=== PATIENT | female | born 1985 | race Caucasian/White ===

== ENCOUNTER 2020-02-06 20:11 | Emergency (ER) | payer SELFPAY ==
[~2020-02-06] VITALS: Ht 152.4 cm; Wt 73.3 kg
--- NOTE | 2020-02-06 22:09 | NUR ---
JUNIOR JAVA DEVELOPER: UA COLLECTED AND SENT FROM TRIAGE
[2020-02-06 22:16] LABS: BASOPHILS # (AUTO) 0.03 x10^3/uL (0-0.1); BASOPHILS % (AUTO) 1 % (0-1); EOSINOPHILS # (AUTO) 0.15 x10^3/uL (0-0.4); EOSINOPHILS % (AUTO) 2 % (1-7); LYMPHOCYTES # (AUTO) 1.88 x10^3/uL (1-3.4); LYMPHOCYTES % (AUTO) 27 % (22-44); MD NO; MEAN CORPUSCULAR HEMOGLOBIN 31.1 pg (27.0-34.8); MEAN CORPUSCULAR VOLUME 94.2 fL (80-100); MEAN PLATELET VOLUME 9.1 fL (7.4-10.4); MONOCYTES # (AUTO) 0.41 x10^3/uL (0.2-0.8); MONOCYTES % (AUTO) 6 % (2-9); NEUTROPHILS # (AUTO) 4.41 x10^3/uL (1.8-6.8); NEUTROPHILS % (AUTO) 64 % (42-75); PLATELET COUNT 333 x10^3/uL (130-400); RED BLOOD COUNT 4.88 x10^6/uL (3.82-5.3); RED CELL DISTRIBUTION WIDTH 13.6 % (9.6-15.2)
[2020-02-06 22:20] LABS: ANION GAP 7 mmol/L (5-15); CHLORIDE 116 mmol/L (98-107)
[2020-02-06 22:20] LABS: CULTURE INDICATED? YES; MICROSCOPIC INDICATED
--- NOTE | 2020-02-06 22:59 | NUR ---
PT. AMBULATORY TO ROOM FROM LOBBY AT THIS TIME.
--- NOTE | 2020-02-06 23:06 | NUR ---
PT. C/O RLQ ABD PAIN THAT RADIATES TO RIGHT FLANK X 1 WEEK. HX OF MULTIPLE KIDNEY STONES AND SURGERIES R/T THEM IN THE PAST. SEE TRIAGE NOTE. PT. C/O NAUSEA ALL DAY TODAY BUT DENIES ANY VOMITING OR DIARRHEA TODAY. AWAITING PROVIDER EVAL.
[2020-02-07] MEDS ORDERED: HYDROmorphone 2 MG/ML, 1ML IVPush PRN
[2020-02-07] MEDS ORDERED: PROMETHAZINE 25 MG/ML, 1ML IM ONE
--- NOTE | 2020-02-07 | NUR ---
REPORT TO COLLEEN STAPLES TO ASSUME CARE OF PT. PT. TO CT VIA USMAN AT THIS TIME.
[2020-02-07 00:09] LABS: ALANINE AMINOTRANSFERASE 26 U/L (12-78); ALBUMIN 4.1 g/dL (3.4-5.0)
[2020-02-07 00:11] LABS: ALKALINE PHOSPHATASE 62 U/L (45-117); TOTAL PROTEIN 7.9 g/dL (6.4-8.2)
[2020-02-07 00:12] LABS: BILIRUBIN, DIRECT < 0.1 mg/dL (0.1-0.2); BILIRUBIN,TOTAL < 0.1 mg/dL (0.2-1.0)
--- NOTE | 2020-02-07 01:32 | NUR ---
BREAK RN: JHOAN ATTEMPTED IV ACCESS X 3 WITH NO SUCCESS. PT. REFUSING IM INJECTIONS. DISCUSSED OPTIONS FOR PAIN CONTROL WITH PO MEDS; PT. AGREES WITH THIS PLAN; WILL DISCUSS WITH DR. BHATT.
[2020-02-07] MEDS ORDERED: OXYcodone/APAP 10/325MG TABLET ONE (01:38)
[2020-02-07 01:42] VITALS: BP 114/77
--- NOTE | 2020-02-07 01:57 | NUR ---
REPORT BACK TO COLLEEN STAPLES TO REASSUME CARE OF PT.
[2020-02-07] MEDS ORDERED: OXYcodone/APAP 10/325MG TABLET PO ONE (02:00)
== END 2020-02-07 02:03 | disposition home or self-care (01) ==
LOC: ED 02-07 01:37
DX: R31.0 Gross hematuria (principal); N23 Unspecified renal colic
CPT/HCPCS: 36415; 74176; 80048; 80076; 81001; 81025; 83690; 85025; 87086; 99284

== ENCOUNTER 2020-09-04 19:30 | Emergency (ER) | payer SELFPAY ==
[~2020-09-04] VITALS: Ht 165.1 cm; Wt 74.4 kg
--- NOTE | 2020-09-04 21:29 | NUR ---
URINE SENT TO LAB, IV INFILTRATED UNABLE TO W/D BLOOD. REQUESTED U/S IV LAB DRAW. PT HAS HX OF OVER 13 URETER STENTS. REPORTS PAIN IN LEFT FLANK IS SIMILIAR TO PREVIOUS STONES.
[2020-09-04 21:48] LABS: MICROSCOPIC INDICATED
--- NOTE | 2020-09-04 22:14 | NUR ---
LABS SENT. PT REQUESTED PAIN MED/ N/V MED. REQUESTED FROM .
--- NOTE | 2020-09-04 22:16 | NUR ---
SOLANGEJ PLACED BY ZORAIDA MACIAS. LABS OBTAINED AND SENT. PT REQUESTING PAIN MEDS AND N/V MED.
[2020-09-04] MEDS ORDERED: PROMETHAZINE 25 MG/ML, 1ML IM ONE (22:30)
[2020-09-04] MEDS ORDERED: HYDROmorphone 2 MG/ML, 1ML IVPush PRN (22:30)
[2020-09-04 22:37] LABS: BASOPHILS % (AUTO) 1 % (0-1); EOSINOPHILS % (AUTO) 3 % (1-7); LYMPHOCYTES % (AUTO) 23 % (22-44); MEAN CORPUSCULAR HEMOGLOBIN 30.7 pg (27.0-34.8); MEAN CORPUSCULAR HGB CONC 33.3 g/dL (32.4-35.8); MEAN PLATELET VOLUME 8.3 fL (7.4-10.4); MONOCYTES % (AUTO) 9 % (2-9); NEUTROPHILS % (AUTO) 64 % (42-75); PLATELET COUNT 322 x10^3/uL (130-400)
[2020-09-04 22:40] LABS: ALANINE AMINOTRANSFERASE 19 U/L (12-78); ALBUMIN 4.1 g/dL (3.4-5.0); ANION GAP 9 mmol/L (5-15); CALCIUM 8.9 mg/dL (8.5-10.1); CHLORIDE 113 mmol/L (98-107)
[2020-09-04] MEDS ORDERED: PROMETHAZINE 25 MG/ML, 1ML ONE (22:41)
[2020-09-04] MEDS ORDERED: HYDROmorphone 1 MG/ML, 1ML INJ ONE (22:41)
[2020-09-04 22:43] LABS: ALKALINE PHOSPHATASE 59 U/L (45-117); BILIRUBIN,TOTAL 0.5 mg/dL (0.2-1.0); CREATININE 0.71 mg/dL (0.55-1.02); TOTAL PROTEIN 7.5 g/dL (6.4-8.2)
[2020-09-04 22:47] LABS: MD NO
--- NOTE | 2020-09-04 23:02 | NUR ---
medicated per order, vss.
[2020-09-04 23:15] VITALS: BP 132/88
--- NOTE | 2020-09-04 23:15 | NUR ---
vss IV DC CATH INTACT, DC HOME WITH INSTRUCT PT VERBALIZES UNDERSTANDING. VSS
== END 2020-09-04 23:23 | disposition home or self-care (01) ==
LOC: ED 23:00
DX: N30.01 Acute cystitis with hematuria (principal); G89.29 Other chronic pain
CPT/HCPCS: 36415; 74176; 80053; 81001; 83690; 85025; 87086; 96372; 96374; 99285; J1170; J2550

== ENCOUNTER 2020-10-15 13:01 | Emergency (ER) | payer SELFPAY ==
[~2020-10-15] VITALS: Ht 167.6 cm; Wt 75.8 kg
--- NOTE | 2020-10-15 14:09 | NUR ---
MANUAL WRITER: PT TO ROOM FROM LOBBY
--- NOTE | 2020-10-15 14:18 | NUR ---
BREAK RN: PT C/O RIGHT FLANK PAIN X3 DAYS. VS STABLE. NO ACUTE DISTRESS NOTED. CALL LIGHT IN PLACE. WILL CONTINUE TO MONITOR WHILE PRIMARY RN IS ON BREAK.
--- NOTE | 2020-10-15 15:00 | NUR ---
pt unable to urinate
[2020-10-15] MEDS ORDERED: HYDROmorphone 1 MG/ML, 1ML INJ ONE ×3 (15:23→16:10)
[2020-10-15] MEDS ORDERED: SODIUM CHLORIDE 0.9% 1,000ML IVBOLUS ONE (15:30)
[2020-10-15] MEDS: HYDROmorphone 2 MG/ML, 1ML IVPush PRN ×2 (15:30→16:13)
[2020-10-15] MEDS ORDERED: SODIUM CHLORIDE FLUSH 10ML SYR IVF ONE (15:30)
[2020-10-15 15:46] LABS: BASOPHILS % (AUTO) 1 % (0-1); EOSINOPHILS % (AUTO) 1 % (1-7); LYMPHOCYTES % (AUTO) 22 % (22-44); MEAN CORPUSCULAR HEMOGLOBIN 31.7 pg (27.0-34.8); MEAN CORPUSCULAR HGB CONC 33.5 g/dL (32.4-35.8); MEAN PLATELET VOLUME 8.3 fL (7.4-10.4); MONOCYTES % (AUTO) 7 % (2-9); NEUTROPHILS % (AUTO) 69 % (42-75); PLATELET COUNT 261 x10^3/uL (130-400); RED BLOOD COUNT 4.79 x10^6/uL (3.82-5.3); RED CELL DISTRIBUTION WIDTH 13.3 % (9.6-15.2)
[2020-10-15 15:49] LABS: MD NO
[2020-10-15 15:57] LABS: ALANINE AMINOTRANSFERASE 29 U/L (12-78); ALBUMIN 4.6 g/dL (3.4-5.0); ANION GAP 7 mmol/L (5-15); CALCIUM 9.3 mg/dL (8.5-10.1); CHLORIDE 113 mmol/L (98-107); CREATININE 0.75 mg/dL (0.55-1.02)
[2020-10-15 16:01] LABS: ALKALINE PHOSPHATASE 58 U/L (45-117); BILIRUBIN,TOTAL 0.4 mg/dL (0.2-1.0); TOTAL PROTEIN 8.4 g/dL (6.4-8.2)
--- NOTE | 2020-10-15 16:04 | NUR ---
vss. pt resting in bed and US at bedside.
--- NOTE | 2020-10-15 16:14 | NUR ---
pt was given inital 1mg of IV diluadid through IV then it infiltrated shortly after. pt stated she was feeling no relief from pain medication so gave another 1mg through a new IV. after US pt states pain was still 7/ d/t US pressing on everything. second dose of diluadid IV given through new IV.
[2020-10-15] MEDS ORDERED: DIPHENHYDRAMINE 50 MG/ML, 1ML ONE (17:04)
--- NOTE | 2020-10-15 17:32 | NUR ---
pt is dry heaving. PA aware.
[2020-10-15] MEDS ORDERED: DIPHENHYDRAMINE 50 MG/ML, 1ML IVPush ONE (18:00)
[2020-10-15 18:34] LABS: MICROSCOPIC INDICATED
--- NOTE | 2020-10-15 18:44 | NUR ---
pt very upset that she is not getting anymore pain medication. PA and made aware.
[2020-10-15] MEDS ORDERED: OXYcodone/APAP 7.5/325MG TABLET ONE (18:47)
[2020-10-15 18:52] VITALS: BP 132/71
[2020-10-15] MEDS ORDERED: OXYcodone/APAP 7.5/325MG TABLET PO ONE (19:00)
--- NOTE | 2020-10-15 19:14 | NUR ---
REPORT FROM HAM ASSUMED CARE OF PT
--- NOTE | 2020-10-15 19:43 | NUR ---
BREAK RN: Patient/Caregiver given discharge instructions and they have confirmed that they understand the instructions. Patient ambulatory with steady gait.
== END 2020-10-15 19:45 | disposition home or self-care (01) ==
LOC: ED 19:30
DX: R31.0 Gross hematuria (principal); R10.12 Left upper quadrant pain; R10.13 Epigastric pain; R11.2 Nausea with vomiting, unspecified; Z90.49 Acquired absence of other specified parts of digestive tract; Z88.5 Allergy status to narcotic agent; Z88.1 Allergy status to other antibiotic agents
CPT/HCPCS: 36415; 74021; 76770; 80053; 81001; 83690; 84703; 85025; 96361; 96374; 96375; 96376; 99285; J1170; J1200; J7030

== ENCOUNTER 2020-11-11 18:49 | Emergency (ER) | payer OTHER ==
[~2020-11-11] VITALS: Ht 165.1 cm; Wt 75.0 kg
[2020-11-11] MEDS ORDERED: SODIUM CHLORIDE 0.9% 1,000ML IV ONE (21:00)
[2020-11-11] MEDS ORDERED: DIPHENHYDRAMINE 50 MG/ML, 1ML ONE ×2 (21:00→22:28)
[2020-11-11] MEDS ORDERED: DIPHENHYDRAMINE 50 MG/ML, 1ML IVPush ONE ×2 (21:00→22:00)
[2020-11-11] MEDS ORDERED: HYDROmorphone 1 MG/ML, 1ML INJ ONE ×2 (21:01→22:28)
[2020-11-11] MEDS: HYDROmorphone 2 MG/ML, 1ML IVPush PRN ×2 (21:05→22:34)
[2020-11-11 21:11] LABS: BASOPHILS % (AUTO) 1 % (0-1); EOSINOPHILS % (AUTO) 2 % (1-7); LYMPHOCYTES % (AUTO) 36 % (22-44); MD NO; MEAN CORPUSCULAR HEMOGLOBIN 31.1 pg (27.0-34.8); MEAN CORPUSCULAR HGB CONC 33.9 g/dL (32.4-35.8); MEAN PLATELET VOLUME 8.5 fL (7.4-10.4); MONOCYTES % (AUTO) 9 % (2-9); NEUTROPHILS % (AUTO) 53 % (42-75); PLATELET COUNT 291 x10^3/uL (130-400); RED BLOOD COUNT 4.54 x10^6/uL (3.82-5.3); RED CELL DISTRIBUTION WIDTH 12.9 % (9.6-15.2)
[2020-11-11 21:13] LABS: ALBUMIN 4.2 g/dL (3.4-5.0); ANION GAP 7 mmol/L (5-15); CHLORIDE 111 mmol/L (98-107)
--- NOTE | 2020-11-11 21:15 | NUR ---
PT RESTING AWAITING TEST RESULTS GAVE MEDS PAIN BETTER...
[2020-11-11 21:17] LABS: ALANINE AMINOTRANSFERASE 22 U/L (12-78); ALKALINE PHOSPHATASE 54 U/L (45-117); BILIRUBIN,TOTAL 0.5 mg/dL (0.2-1.0); CREATININE 0.63 mg/dL (0.55-1.02); TOTAL PROTEIN 7.4 g/dL (6.4-8.2)
[2020-11-11 21:23] LABS: MICROSCOPIC INDICATED
--- NOTE | 2020-11-11 21:39 | NUR ---
PT RESTING ON PHONE NO PAIN VITALS IN WAITING RESULTS...
--- NOTE | 2020-11-11 22:23 | NUR ---
REPORT FROM CARTER MACIAS ASSUMING CARE OF PT AT THIS TIME
--- NOTE | 2020-11-11 22:34 | NUR ---
VERIFIED WITH DR STEINER ABOUT SECOND DOSE OF BENADRYL AND DILAUDID, GO AHEAD WITH SECOND DOSE. PT TOLERATED WELL WILL GIVE PO FLUIDS SHORTLY
--- NOTE | 2020-11-11 22:47 | NUR ---
PT PROVIDED FLUIDS AND IS SIPPING WATER AT THIS TIME. TOLERATING WELL
[2020-11-11 23:11] VITALS: BP 124/73
--- NOTE | 2020-11-11 23:15 | NUR ---
Patient/Caregiver given discharge instructions and they have confirmed that they understand the instructions. Patient ambulatory with steady gait. PIV DC PRIOR TO LEAVING
== END 2020-11-11 23:16 | disposition home or self-care (01) ==
LOC: ED 20:11
DX: R31.0 Gross hematuria (principal); E78.1 Pure hyperglyceridemia; N39.0 Urinary tract infection, site not specified; N23 Unspecified renal colic; E87.1 Hypo-osmolality and hyponatremia; Z90.89 Acquired absence of other organs; Z90.49 Acquired absence of other specified parts of digestive tract
CPT/HCPCS: 36415; 74176; 80053; 81001; 83605; 83690; 85025; 87086; 96361; 96374; 96375; 96376; 99284; J1170; J1200; J7030

== ENCOUNTER 2020-11-13 10:48 | Emergency (ER) | payer OTHER ==
[~2020-11-13] VITALS: Ht 152.4 cm; Wt 74.6 kg
[2020-11-13 10:58] VITALS: BP 116/80
--- NOTE | 2020-11-13 11:41 | NUR ---
pt anju. PA aware.
== END 2020-11-13 11:43 | disposition left against medical advice (07) ==
LOC: ED 11:08
DX: R11.2 Nausea with vomiting, unspecified (principal); R10.9 Unspecified abdominal pain; Z90.89 Acquired absence of other organs; Z90.49 Acquired absence of other specified parts of digestive tract
CPT/HCPCS: 99281

== ENCOUNTER 2020-12-25 09:50 | Emergency (ER) | payer OTHER ==
[~2020-12-25] VITALS: Ht 165.1 cm; Wt 78.9 kg
--- NOTE | 2020-12-25 10:19 | NUR ---
BREAK RN: PT AMBULATORY TO ROOM FROM TRIAGE, INSTRUCTED ON COLLECTION OF CC URINE AND PT AMBULATORY TO BATHROOM.
--- NOTE | 2020-12-25 10:28 | NUR ---
Pt complaining if 8/10 right flank pain and blood in urine. PA at bedside. Pt stated that she has had multiple kidney stones in the past with stents placed.
[2020-12-25 10:30] VITALS: BP 126/81
[2020-12-25] MEDS ORDERED: OXYcodone/APAP 5/325MG TABLET PO ONE (10:30)
--- NOTE | 2020-12-25 10:51 | NUR ---
Pt stated that she just got an appointment with her hot cell technician so she wanted to leave AMA. MECHELLE Ricks notified, AMA paperwork signed.
[2020-12-25] MEDS ORDERED: METOCLOPRAMIDE 10MG TABLET PO ONE (11:30)
== END 2020-12-25 10:54 | disposition left against medical advice (07) ==
LOC: ED 10:48
DX: R10.9 Unspecified abdominal pain (principal); M54.9 Dorsalgia, unspecified; R11.2 Nausea with vomiting, unspecified; Z87.442 Personal history of urinary calculi; F17.210 Nicotine dependence, cigarettes, uncomplicated
CPT/HCPCS: 99281